=== PATIENT | female | born 2000 | race African-American/Black ===

== ENCOUNTER 2024-05-26 21:36 | Emergency (ER) | payer OTHER, MEDICAID ==
--- NOTE | 2024-05-26 22:16 | ED Physician Documentation ---
History of Present Illness - Stated complaint Stated Complaint: N/D/FEVER - Chief complaint Chief Complaint: Abd Pain - History obtained from History obtained from: Patient - History of Present Illness Timing: Today Pain level max: 0 Pain level now: 0 - Additonal information Additional information: Patient is a 23-year-old female, 2 para 1, approximately 7 weeks last week. [facility] went to [facility] for a elective . She received misoprostol on Wednesday, took the second dose on Wednesday. She states she has not had much bleeding and is concerned that it did not work. She states that she had a Tmax of 100.2 today. She states she has had diarrhea as well. Nothing makes it better or worse. No cough or congestion. No headache. Has had nausea. Review of Systems Constitutional: denies: Chills, Myalgias GI: denies: Abdominal Pain, Bloody / black stool : denies: Dysuria, Frequency, Hesitancy Skin: denies: Rash Musculoskeletal: denies: Neck pain, Back pain PD PAST MEDICAL HISTORY - Past Medical History Past Medical History: No - Past Surgical History Past Surgical History: No - Allergies Allergies/Adverse Reactions: Allergies Allergy/AdvReac Type Severity Reaction Status Date / Time No Known Drug Allergies Allergy Verified 05/26/24 21:49 - Social History Does the pt smoke?: No Smoking Status: Never smoker - POLST Patient has POLST: No PD ED PE NORMAL - Vitals Vital signs reviewed: Yes - General General: Alert and oriented X 3, No acute distress - HEENT HEENT: Moist mucous membranes - Neck Neck: Supple, no meningeal sign - Cardiac Cardiac: RRR, Strong equal pulses - Respiratory Respiratory: No respiratory distress, Clear bilaterally - Abdomen Abdomen: Soft, Non tender, Non distended - Derm Derm: Warm and dry - Extremities Extremities: No edema - Neuro Neuro: Alert and oriented X 3 - Psych Psych: Normal mood, Normal affect Results - Vitals Vitals: Vital Signs - 24 hr 05/26/24 21:49 Temperature 36.7 C Heart Rate 78 Respiratory 16 Rate Blood Pressure 117/78 O2 Saturation 100 Oxygen O2 Source Room air PD Medical Decision Making - ED course Complexity details: reviewed results, re-evaluated patient, considered differential, d/w patient, d/w new vehicle sales consultant ED course: Bedside ultrasound was performed. Shows a intrauterine , heart rate of approximately 157 bpm. Measuring 8 weeks 5 days. Discussed the case with Dr. Lindsey, OB on-call, recommends following up in the office to schedule a D&C. He does request a blood type and hCG level. These were ordered. Patient is otherwise well-appearing, nontoxic. No evidence of endometritis. No evidence of sepsis. Patient will follow-up with OB for further care. Patient counseled regarding signs and symptoms for which I believe and urgent re-evaluation would be necessary. Patient with good understanding of and agreement to plan and is comfortable going home at this time This document was made in part using voice recognition software. While efforts are made to proofread this document, sound alike and grammatical errors may occur. Departure - Departure Disposition: 01 Home, Self Care Clinical Impression: Qualifiers: Weeks of gestation: 8 weeks Qualified Code(s): Z3A.08 - 8 weeks gestation of Condition: Good Instructions: Misoprostol tablets, Dilation and Curettage, Dilation and Curettage Dc Follow-Up: Óscar Lindsey MD [Provider Admit Priv/Credential] - Comments: I spoke with Dr. Lindsey, on-call for OB tonight. He states that since you did take misoprostol, it is recommended that you complete the termination of with a dilatation and curettage. This is a procedure performed in the operating room. He is going to see you in the office next week to get that scheduled for you. The office should call you on Wednesday, if you do not hear from them by early afternoon, I would recommend calling them. Please return if you worsen including increasing pain, fevers or other new or worrisome symptoms. Forms: PCP List
[2024-05-26 22:20] VITALS: O2SAT 100
[2024-05-26 22:42] VITALS: BP 123/69
== END 2024-05-26 22:35 | disposition home or self-care (01) ==
LOC: ED 21:36
DX: O99.891 Other specified diseases and conditions complicating pregnancy (principal); R50.9 Fever, unspecified; R19.7 Diarrhea, unspecified; Z3A.08 8 weeks gestation of pregnancy
CPT/HCPCS: 36415; 84702; 86900; 86901; 99283

== ENCOUNTER 2025-01-08 21:04 | Inpatient (IN) ==
[2025-01-08] MEDS ORDERED: miSOPROStoL 200 MCG TABLET BC PRN (21:19)
[2025-01-08] MEDS ORDERED: lidocaine 1% 20 ML MDV ID PRN (21:19)
[2025-01-08] MEDS ORDERED: fentaNYL 100 MCG/2 ML VIAL IVP PRN (21:19)
[2025-01-08] MEDS ORDERED: NIFEdipine 10 MG CAPSULE PO PRN (21:19)
[2025-01-08] MEDS ORDERED: OXYTOCIN/SODIUM CHLORIDE 500 ML IV PRN (21:19)
[2025-01-08] MEDS ORDERED: hydrALAZINE INJ 20 MG/ML VIAL IVP PRN (21:19)
[2025-01-08] MEDS ORDERED: TERBUTALINE 1 MG/ML VIAL SUBQ PRN (21:19)
[2025-01-08] MEDS ORDERED: LABETALOL 20 MG/4 ML SYRINGE IVP PRN ×3 (21:19)
[2025-01-08] MEDS ORDERED: ACETAMINOPHEN 500 MG TABLET PO PRN (21:19)
[2025-01-08] MEDS ORDERED: miSOPROStoL 200 MCG TABLET PR PRN (21:19)
[2025-01-08] MEDS ORDERED: TRANEXAMIC ACID IN NACL 1,000 MG/100 ML BAG IV PRN (21:19)
[2025-01-08] MEDS ORDERED: METHYLERGONOVINE 0.2 MG/ML VIAL IM PRN (21:19)
[2025-01-08] MEDS ORDERED: SODIUM CHLORIDE FLUSH 0.9% 10 ML SYRINGE IVP PRN (21:19)
[2025-01-08] MEDS ORDERED: OXYTOCIN 10 UNIT/ML VIAL IM PRN (21:19)
[2025-01-08] MEDS ORDERED: SUMAtriptan 25 MG TABLET PO PRN (22:00)
[2025-01-08] MEDS: SODIUM CHLORIDE FLUSH 0.9% 10 ML SYRINGE IVP SCH (22:00)
[2025-01-08 22:02] LABS: BASOPHILS % (AUTO) 0.5 %; EOSINOPHILS # (AUTO) 0.1 10^3/uL (0.0-0.7); EOSINOPHILS % (AUTO) 1.1 %; HCT - HEMATOCRIT 33.8 % (37.0-47.0); HGB - HEMOGLOBIN 10.8 g/dL (12.0-16.0); LYMPHOCYTES # (AUTO) 1.4 10^3/uL (1.5-3.5); LYMPHOCYTES % (AUTO) 15.8 %; MEAN CORPUSCULAR HEMOGLOBIN 28.4 pg (27.0-31.0); MEAN CORPUSCULAR VOLUME 88.9 fL (81.0-99.0); MEAN PLATELET VOLUME 9.7 fL (7.9-10.8); MONOCYTES # (AUTO) 0.8 10^3/uL (0.0-1.0); MONOCYTES % (AUTO) 9.7 %; NEUTROPHILS # (AUTO) 6.1 10^3/uL (1.5-6.6); NEUTROPHILS % (AUTO) 71.7 %; PLT - PLATELET COUNT 239 10^3/uL (130-450); RED CELL DISTRIBUTION WIDTH 14.1 % (12.0-15.0); WHITE BLOOD COUNT 8.5 x10^3/uL (4.8-10.8)
[2025-01-08 22:15] LABS: ALBUMIN 3.6 g/dL (3.2-5.5); ALBUMIN/GLOBULIN RATIO 1.3 (1.0-2.2); BILIRUBIN,TOTAL 0.3 mg/dL (0.2-1.0); CALCIUM 9.5 mg/dL (8.5-10.3); CREATININE 0.7 mg/dL (0.6-1.3); TOTAL PROTEIN 6.4 g/dL (6.4-8.9)
--- NOTE | 2025-01-08 22:33 | HISTORY & PHYSICAL EXAMINATION ---
Admit History Visit Reason Visit Reason: Other (labor induction at term) : 2 Parity: 1 Care: positive [facility] Smoking Status: Never smoker Other Maternal History Other Maternal History: Admitted for labor induction. was to have last week but due to unit acuity not until today. 40w 5d by US. not = lmp. biggest issue with , took mifepristone and misoprostol early in to terminate and remained . Evaluated by [facility] MFM and found all was normal. otherwise pretty normal. does struggle with migraines and is taking nifedipine 30 mg xl daily since Aug and that helps. If she has a SANTOS does well with sumitriptan. nothing else really helps. does not get nauseated with her SANTOS. Home Medications - Last Reconciled 01/03/25 by Lawanda Washington MA acetaminophen (Tylenol) 325 mg PO Q6H PRN acetaminophen-caffeine 500-65 mg (Excedrin Tension Headache) 1 tab PO Q12H PRN mupirocin 2% (Centany) 1 applic topical TID nifedipine ER TAKE 1 TABLET BY MOUTH EVERY DAY prenat.vits,osvaldo,toj-jcjf-[id number] tabs PO sumatriptan succinate take 1 tab at onset of headache; if no relief may repeat 1 tab after at least 2 hrs; max = 4 tabs/24 hr PO triamcinolone acetonide 0.025% Apply to affected area once or twice daily for 2- 4 weeks. Expected Delivery Route/Plan Membrane sweep 12/28 IOL 12/31. Specific Issues/Plans Exposure to mifepristone and misoprostol: -Managed with MFM and discussed risks and benefits of continuation of after exposure. Discrepant dating: Unsure of her last LMP, and discordant from previous ultrasound. Will use 12-week dating scan. Migraine with aura: Headaches several days a week, although improving. Was prescribed a biologic, but did not start. Prescribed metoclopramide, but has not used. Tylenol is managing currently. Excessive weight gain in -EFW At 36 weeks: EFW 3119 g, 80th percentile. Abdominal circumference 91st percentile. Blood type: O+ Antibody: negative CBC: [id number] HCT39.5 HGB 13.0 RUB: equivocal VZV: immune HBsAg: negative HepC: NR RPR/AB-EIA: NR (reactive A) HIV: NR PAP: 2 years ago normal GC/CT: negative HSV: denies Genetic testing: negative Covid: declines [facility] done at [place] (in the scanned records) Placenta: anterior Cord:3VC NICOLLE:WNL EFW: 443g 65th%ile 50gm OGCT: 100 3HR GTT: TDAP: 10/20 Breast Pump: has one Antibody screen: 3rd trimester CPO644 HCT37.7 HGB 12.3 GBS:12/07/24 - negative HPI Diagnosis/Indication for NST: Other (induction) NST Procedure NST Procedure: Reactive for of 32 weeks gestation or more. NST tracing contains at least two heart rate accelerations that are at least 15 beats per minute above the baseline rate and lasting at least 15 seconds from onset to return to baseline within a twenty minute period. Results and Plan Findings/Impression: reactive NST Plan: proceed with labor induction Meds/Allgy Home Medications Ambulatory Orders Medication Instructions Recorded Confirmed mupirocin 2 % topical ointment 1 applic topical TID #15 grams 07/03/24 01/08/25 (Centany) prenat.vits,osvaldo,acw-yjje-zwumq tab PO 07/03/24 01/08/25 acetaminophen 325 mg capsule 325 mg PO Q6H PRN 07/14/24 01/08/25 (Tylenol) acetaminophen-caffeine 500 mg-65 1 tab PO Q12H PRN 07/14/24 01/08/25 mg tablet (Excedrin Tension Headache) sumatriptan succinate 50 mg tablet See Rx Instructions PO .COMPLEX 09/12/24 01/08/25 #20 tabs nifedipine 30 mg tablet,extended See Rx Instructions .Route 09/15/24 01/08/25 release .COMPLEX #90 tabs triamcinolone acetonide 0.025 % See Rx Instructions topical 10/20/24 01/08/25 topical cream .COMPLEX eczema #80 grams Allergies Allergies Allergy/AdvReac Type Severity Reaction Status Date / Time No Known Drug Allergies Allergy Verified 01/03/25 10:21 PFSH Active Problems All Active Problems (Updated 01/08/25 @ 22:32 by Argelia James MD) Encounter for planned induction of labor (Acute) Excessive weight gain affecting (Acute) Supervision of high risk in third trimester (Acute) Swelling of vagina (Acute) Migraine (Acute) 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, antepartum (Acute) Medical History Medical History (Updated 01/08/25 @ 22:32 by Argelia James MD) Fall Cellulitis of great toe, left Supervision of high risk in second trimester Social History Social History Smoking Status: Never smoker Do you vape?: Yes Do you feel safe in your home environment?: Yes Suffered physical, verbal, emotional, or financial abuse?: No History of Abuse: No ETOH Use: Wine Substance Use: denies use Are you sexually active?: Yes POLST Patient has POLST: No Review of Systems Cardiovascular Denies: Irregular heart rate, swelling of feet/ankles or shortness of breath with exertion Respiratory Denies: Shortness of breath Gastrointestinal Denies: Nausea Neurological Denies: Headache (no Headache today.) Physical Abdominal Exam Contraction Frequency (min/apart): EVERY 5-6 MIN Contraction Intensity: positive Mild Uterine Resting Tone: positive Soft Monitoring Heart Rate Baseline: 150 Strip Review: positive Category I Presentation Presentation: positive Vertex (confirmed by US tonight.) Vaginal Exam Membranes: positive Membranes intact Dilation (in cm): in clinic earlier today by Dr. Lindsey was 1 cm Station: positive -3 Speculum Exam Speculum Exam Performed: positive No Plan for Labor Plan For Labor I expect patient to be DC'd or transferred within 96 hours.: Yes Plan for Labor: misoprostol induction Conclusion/Plan Problem List (1) Encounter for planned induction of labor: Plan: 40w5d. start with miso. (2) Excessive weight gain affecting : Plan: will be mindful of increased risk of shoulder dystocia. (3) 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, antepartum: Plan: normal US with Prov MFM. Qualifiers: Fetus number: single or unspecified fetus Qualified Code(s): O35.9XX0 - Maternal care for (suspected) abnormality and damage, unspecified, not applicable or unspecified (4) Migraine: Plan: continue nifedipine daily. sumitriptan ordered in case she gets a headache. Plan labor induction with misoprostol. procedure reviewed. consents signed. Lab Results Lab results reviewed: Yes 01/08/25 21:45 01/08/25 21:45
[2025-01-08] MEDS: miSOPROStoL 100 MCG TABLET VG SCH (22:42)
[2025-01-08 23:29] LABS: CREATININE,URINE 173.3 mg/dL; PROTEIN/CREATININE RATIO,URINE 0.1 (<=0.2)
--- NOTE | 2025-01-09 07:35 | PROVIDER PROGRESS NOTE ---
Labor Progress Note Uterine Monitoring Uterine Monitoring Mode: positive External toco Contraction Intensity: positive Moderate Uterine Resting Tone: positive Soft Monitoring Monitor Mode: positive External ultrasound Heart Rate Variability: positive Moderate (6-25 bmp) Accelerations: positive Present, 15x15 Decelerations: positive None Strip Review: positive Category I Vaginal Exam Dilation (in cm): 4.5 Effacement (%): 90 Station: -2 Cervical Position: Posterior Labor Progress Note Labor Progress Note/Additional Text: Painful contractions since SROM at 0145. check at 0300 and 1 cm -3. now very painful, just out of tub and going back on monitor. Seems to be progressing to active phase with just one dose of miso. Great for her as she wanted an unmedicated . Mom, daughter, and Jr in room for support. Meconium in amniotic fluid so will notify peds for delivery.
[2025-01-09] MEDS ORDERED: NIFEdipine ER 30 MG TABLET PO SCH (09:00)
[2025-01-09] MEDS: LACTATED RINGERS 1,000 ML IV PRN (09:12)
[2025-01-09] MEDS ORDERED: ROPIVACAINE 0.2% 200 MG/100 ML BAG EP ONE (09:18)
[2025-01-09] MEDS ORDERED: NALBUPHINE 10 MG/ML AMP IVP PRN (09:49)
[2025-01-09] MEDS ORDERED: NALOXONE 0.4 MG/ML VIAL IVP PRN ×2 (09:49→23:15)
[2025-01-09] MEDS ORDERED: diphenhydrAMINE INJ 50 MG/ML VIAL IVP PRN (09:49)
[2025-01-09] MEDS ORDERED: METOCLOPRAMIDE 10 MG/2 ML VIAL IVP PRN ×2 (09:49→23:15)
--- NOTE | 2025-01-09 09:58 | ANESTHESIA PROCEDURE NOTE ---
Pre-Anesthesia VS, & Labs Diagnosis Surgical Diagnosis:: term labor pain Procedure Procedure: epidural for NPO Last Fluid Intake: t/o morning Last Food Intake: breakfast Is Patient ?: Yes Lab Results Current Lab Results: Laboratory Tests 01/08/25 21:45: WBC 8.5, RBC 3.80 L, Hgb 10.8 L, Hct 33.8 L, MCV 88.9, MCH 28.4, MCHC 32.0, RDW 14.1, Plt Count 239, MPV 9.7, Neut # (Auto) 6.1, Lymph # (Auto) 1.4 L, Peach # (Auto) 0.8, Eos # (Auto) 0.1, Baso # (Auto) 0.0, Absolute Nucleated RBC 0.00, Nucleated RBC % 0.0, Sodium 135, Potassium 4.0, Chloride 104, Carbon Dioxide 24, Anion Gap 7.0, BUN 12, Creatinine 0.7, Estimated GFR (MDRD) 125, Glucose 76, Calcium 9.5, Total Bilirubin 0.3, AST 13, ALT 9 L, Alkaline Phosphatase 94, Total Protein 6.4, Albumin 3.6, Globulin 2.8, Albumin/Globulin Ratio 1.3, Blood Type O POSITIVE, Antibody Screen NEGATIVE 01/08/25 21:45 01/08/25 21:45 Meds/Allgy Home Medications Ambulatory Orders Medication Instructions Recorded Confirmed prenat.vits,osvaldo,lma-uhqr-gghsx 1 tab PO 07/03/24 01/08/25 acetaminophen-caffeine 500 mg-65 1 tab PO Q12H PRN pain 07/14/24 01/09/25 mg tablet (Excedrin Tension Headache) sumatriptan succinate 50 mg tablet See Rx Instructions PO .COMPLEX 09/12/24 01/09/25 #20 tabs nifedipine 30 mg tablet,extended See Rx Instructions .Route 09/15/24 01/09/25 release .COMPLEX #90 tabs triamcinolone acetonide 0.025 % See Rx Instructions topical 10/20/24 01/09/25 topical cream .COMPLEX eczema #80 grams Allergies Allergies Allergy/AdvReac Type Severity Reaction Status Date / Time No Known Drug Allergies Allergy Verified 01/03/25 10:21 PFSH Active Problems All Active Problems (Updated 01/09/25 @ 07:39 by Argelia Jamse MD) Post-term , 40-42 weeks of gestation (Acute) Meconium in amniotic fluid (Acute) Encounter for planned induction of labor (Acute) Excessive weight gain affecting (Acute) Supervision of high risk in third trimester (Acute) Migraine (Acute) 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, antepartum (Acute) Medical History Medical History (Updated 01/09/25 @ 07:39 by Argelia James MD) Fall Cellulitis of great toe, left Supervision of high risk in second trimester Surgical History Surgical History (Updated 01/09/25 @ 09:55 by Marcio Monk CRNA) S/P wisdom tooth extraction Social History Social History Smoking Status: Never smoker Do you dip or chew tobacco?: No Do you vape?: Yes Patient requests smoking cessation consult: No Initiate information on smoking cessation: No Do you feel safe in your home environment?: Yes Suffered physical, verbal, emotional, or financial abuse?: No History of Abuse: No ETOH Use: Wine Substance Use: denies use Are you sexually active?: Yes POLST Patient has POLST: No Anesthesia Exam (Expanded) Exam General: Alert, Oriented x3 and Cooperative Dental: WNL Mouth Openin Fingerbreadth Neck Mobility: Normal Mallampati classification: II Thyromental Distance: 4-6 cm Respiratory: No respiratory distress Cardiovascular: Regular rate Neurological: Normal speech Mental/Cognitive Status: Alert/Oriented X3 and Normal for patient Cognitive Status: Within normal limits Plan Problem List (1) Encounter for planned induction of labor: Plan: 40w5d. start with miso. (2) Excessive weight gain affecting : Plan: will be mindful of increased risk of shoulder dystocia. (3) 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, antepartum: Plan: normal US with Prov MFM. Qualifiers: Fetus number: single or unspecified fetus Qualified Code(s): O35.9XX0 - Maternal care for (suspected) abnormality and damage, unspecified, not applicable or unspecified (4) Migraine: Plan: continue nifedipine daily. sumitriptan ordered in case she gets a headache. Plan labor induction with misoprostol. procedure reviewed. consents signed. Plan Anesthesia Type: Epidural Consent for Procedure(s) Verified and Reviewed: Yes Code Status: Attempt Resuscitation ASA Classification ASA classification: 2-Mild systemic disease Is this case an emergency?: No
[2025-01-09] MEDS ORDERED: ePHEDrine 50 MG/ML VIAL IVP ONE ×2 (09:59→22:16)
[2025-01-09] MEDS: ePHEDrine 50 MG/ML VIAL IVP PRN (10:10)
[2025-01-09] MEDS: LACTATED RINGERS 500 ML IV ONE (10:10)
[2025-01-09] MEDS: ONDANSETRON 4 MG/2 ML VIAL IVP PRN (10:15)
--- NOTE | 2025-01-09 12:17 | PHARMACY PROGRESS NOTE ---
Best Possible Medication History Admit Date and Time: 01/08/259 Home Medications Medication Instructions Recorded Confirmed Type acetaminophen-caffeine 500 mg-65 1 tab PO Q12H PRN pain 07/14/24 01/09/25 History mg tablet (Excedrin Tension Headache) sumatriptan succinate 50 mg tablet See Rx Instructions PO .COMPLEX 09/12/24 01/09/25 Rx #20 tabs nifedipine 30 mg tablet,extended See Rx Instructions .Route 09/15/24 01/09/25 Rx release .COMPLEX #90 tabs triamcinolone acetonide 0.025 % See Rx Instructions topical 10/20/24 01/09/25 Rx topical cream .COMPLEX eczema #80 grams vitamin no.167-folic acid 1 tab PO DAILYWM 01/09/25 01/09/25 History 400 mcg-dha 25 mg chewable tablet (One-A-Day ) Processed by: Pharmacy Medications reviewed in ED?: No Medication History completed: No Patient Interview: Completed Secondary Source(s): Insurance records [facility] Statement: Per [facility] interview with patient and review of [employer] insurance records. As the person ultimately responsible for medication therapy, providers are able to order a medication from an existing home medication list in [facility] via the "Reconcile Routine" prior to Confirmation of that medication by client support manager. Such practice is discouraged except when the physician, in their clinical judgment, deems that a medical need exists for a medication without regard to previous use.
[2025-01-09] MEDS: OXYTOCIN/SODIUM CHLORIDE 500 ML IV SCH (12:21)
--- NOTE | 2025-01-09 13:33 | MISCELLANEOUS PROVIDER NOTE ---
Miscellaneous Provider Note - Note: Patient with repeated low BPs for last 2 hours, ephedrine used, called to assess patient. Pt comfortable with contractions resting on R side. Epidural rate changed from 10cc/hr continuous to 7cc/hr continuous. 4cc PCEA bolus [id number] remains available as needed.
--- NOTE | 2025-01-09 15:52 | PROVIDER PROGRESS NOTE ---
Labor Progress Note Labor Progress Note Labor Progress Note/Additional Text: S: Overall comfortable, epidural working well. Has needed multiple doses of ephedrine since epidural due to hypotension. [facility]: [facility] 590[facility]3, moderate consistency, cervix a little thicker on her right side. Discussed placement of IUPC and she did consent, placed without difficulty. monitoring: FHTs: 150s bpm baseline, + accel, intermittent late decelerations, mostly moderate variability, minimal at times. [place]: 2-6 min Cat 2 A/P: 24 yo at 40w6d undergoing elective IOL. FHTs have been Cat 2 this afternoon with intermittent late decelerations, possibly due to hypotension after epidural. Has required multiple ephedrine doses and IV fluid boluses. RN giving another dose of epherine now, CAR HOPPER will assess at bedside. IUPC placed, will continue pitocin titration to adequate MVUs if FHTs will allow. Will continue to monitor closely. Deonte Taylor MD
--- NOTE | 2025-01-09 15:52 | MISCELLANEOUS PROVIDER NOTE ---
Miscellaneous Provider Note - Note: Called for low BPs, mom, baby stable. 90s for last hour despite fluid bolus, ephedrine. Patient comfortable with contractions, rating them a 1/10. Pitocin at 6. Sensory level asssesed at T6, able to move BLE. Epidural rate decreased to 5cc/hr with no change to PCEA.
[2025-01-09] MEDS: ROPIVACAINE 0.2% 200 MG/100 ML BAG EP PRN (16:43)
[2025-01-09] MEDS ORDERED: fentaNYL 100 MCG/2 ML VIAL ONE ×2 (17:13→23:32)
[2025-01-09] MEDS ORDERED: ROPIVACAINE 0.2% PF 20ML VIAL ONE (17:14)
--- NOTE | 2025-01-09 17:45 | MISCELLANEOUS PROVIDER NOTE ---
Miscellaneous Provider Note - Note: Called for patient having contraction pain now, after epidural dose reduced t wice. BP now stable in 110's. Sensory level T12. 8cc bolus of 0.2% Ropi with 2cc of Fentanyl. Epidural rate back to 10cc/hr continuous. Pt states pain down to 2/10 from 8/10 10mins earlier.
--- NOTE | 2025-01-09 21:12 | PROVIDER PROGRESS NOTE ---
Labor Progress Note Labor Progress Note Labor Progress Note/Additional Text: Wilbert was evaluated at bedside at 1745 and again at 2004. At 1745, SVE 6/80- 2. SVE was unchanged on repeat exam at 2004. She remains on pitocin, contractions adequate earlier in the evening but now inadequate. FHTs have been Cat 2 with tachycardia and intermittent late decelerations, occasional mild variable decelerations. She is afebrile. We discussed continuing with pitocin augmentation and repeating exam at 2145. We have discussed possible delivery if decelerations repetitive and not improved with rescuscitative measures or if SVE unchanged with next check. Will continue to increase pitocin to achieve adequate MVUs if FHTs will allow. Deonte Taylor MD
[2025-01-09] MEDS ORDERED: ceFAZolin (2G) 2 GM in SODIUM CHLORIDE 0.9% MINIBAG 100 ML IV ONE (22:04)
[2025-01-09] MEDS ORDERED: CITRIC ACID/SODIUM CITRATE 15 ML UDC PO ONE (22:04)
[2025-01-09] MEDS ORDERED: AZITHROMYCIN INJ 500 MG in SODIUM CHLORIDE 0.9% 250 ML IV ONE (22:05)
--- NOTE | 2025-01-09 22:09 | PROVIDER PROGRESS NOTE ---
Labor Progress Note Labor Progress Note Labor Progress Note/Additional Text: Wilbert seen at bedside, SVE unchanged and cervix now more swollen. Recommended that we proceed with primary delivery for arrest of active phase, in the setting of persistent Cat 2 FHTs. We reviewed risks of delivery including pain, bleeding (possibly requiring blood transfusion or as a life- saving measure hysterectomy), infection, damage to nearby structures including bowel/bladder, longer recovery time , increased risk for DVT, risk of /injury to mom or baby. She does agree to proceed. Consent was signed. Deonte Taylor MD
[2025-01-09] MEDS ORDERED: OXYTOCIN 10 UNIT/ML VIAL ONE ×2 (22:14→23:41)
[2025-01-09] MEDS ORDERED: LIDOCAINE 2%-EPI 1:100000 20 ML MDV ONE (22:15)
[2025-01-09] MEDS ORDERED: SODIUM CHLORIDE 0.9% 10 ML VIAL ONE ×2 (22:16→23:48)
[2025-01-09] MEDS ORDERED: ONDANSETRON 4 MG/2 ML VIAL ONE (22:46)
[2025-01-09] MEDS ORDERED: METHYLERGONOVINE 0.2 MG/ML VIAL ONE (22:55)
[2025-01-09] MEDS ORDERED: TRANEXAMIC ACID IN NACL 1,000 MG/100 ML BAG IV ONE (22:55)
[2025-01-09] MEDS ORDERED: PHENYLEPHRINE HCL 0.5 MG/5 ML AMPULE ONE (23:11)
[2025-01-09] MEDS ORDERED: HYDROmorphone 0.5 MG/0.5 ML SYRINGE IVP PRN (23:15)
[2025-01-09] MEDS ORDERED: fentaNYL 100 MCG/2 ML VIAL IVP PRN (23:15)
[2025-01-09] MEDS ORDERED: ePHEDrine 50 MG/ML VIAL IVP PRN (23:15)
[2025-01-09] MEDS ORDERED: ATROPINE ABBOJECT 1 MG/10 ML SYRINGE IVP PRN (23:15)
[2025-01-09] MEDS ORDERED: MORPHINE 2 MG/ML CARPUJECT IVP PRN (23:15)
[2025-01-09] MEDS ORDERED: ONDANSETRON 4 MG/2 ML VIAL IVP PRN (23:15)
[2025-01-09] MEDS ORDERED: LIDOCAINE-PF 2% 10 ML AMP SUBQ ONE (23:33)
[2025-01-09] MEDS ORDERED: KETOROLAC 30 MG/ML VIAL ONE (23:37)
[2025-01-09] MEDS ORDERED: LACTATED RINGERS 1,000 ML IV SCH (23:45)
[2025-01-09] MEDS ORDERED: ROPIVACAINE 0.5% PF 20 ML VIAL ONE (23:47)
[2025-01-10] MEDS ORDERED: hydrALAZINE INJ 20 MG/ML VIAL IVP PRN ×2 (00:18)
[2025-01-10] MEDS ORDERED: OXYTOCIN/SODIUM CHLORIDE 500 ML IV PRN (00:18)
[2025-01-10] MEDS ORDERED: NIFEdipine 10 MG CAPSULE PO PRN (00:18)
[2025-01-10] MEDS ORDERED: HYDROCORTISONE 1% CREAM 28 GM TUBE TOP PRN (00:18)
[2025-01-10] MEDS ORDERED: MAGNESIUM HYDROXIDE 2,400 MG/30 ML UDC PO PRN (00:18)
[2025-01-10] MEDS ORDERED: NALOXONE 0.4 MG/ML VIAL IVP PRN (00:18)
[2025-01-10] MEDS ORDERED: LABETALOL 20 MG/4 ML SYRINGE IVP PRN ×3 (00:18)
--- NOTE | 2025-01-10 00:28 | MISCELLANEOUS PROVIDER NOTE ---
Miscellaneous Provider Note - Note: Called for C/S due to failure to progress. Discussed Epidural vs spinal vs GETA. Agreed to B TAP blocks after closure regardless of the anesthetic.
--- NOTE | 2025-01-10 00:30 | ANESTHESIA POST OP EVALUATION ---
Anesthesia Post Eval Post Anesthesia Eval Vitals: Last Vital Signs Temp 37.3 C 01/10/25 00:16 Pulse 89 01/10/25 00:16 Resp 22 01/10/25 00:16 BP 124/62 01/10/25 00:16 Pulse Ox 99 01/10/25 00:16 CV Function Including HR & BP: Stable Pain Control: Satisfactory Nausea & Vomiting: Negative Mental Status: Baseline Respiratory Status: Airway Patent Hydration Status: Satisfactory Anesthesia Complications: None
--- NOTE | 2025-01-10 00:35 | OPERATIVE REPORT ---
Operative Report General Admit Date: 01/08/25 Procedure Data: Operation Date: 01/09/25 22:00 Proposed Procedures p Section(Not Applicable) - Deonte Taylor MD Actual Procedures p Section(Not Applicable) - Deonte Taylor MD Anesthesia Type Spinal Case Staff Anesthesia Provider: Marcio Monk Assisting Provider: Annabelle Velasquez Case Times Procedure Start: 01/09/25 22:47 Procedure End: 01/10/25 00:00 Time out: 01/09/25 22:44 Other Other Information/Narrative: DATE OF PROCEDURE: 01/09/25 Surgeon: Deonte Taylor MD Signal Operator: MARGARITO Hugo was necessary as an pastrycook's assistant for the entire procedure for adequate retraction and visualization, to shorten operative time, to assist with delivery of the , and to lower the risk of surgical injury Pre-Op Diagnosis: arrest of active phase Post-Op Diagnosis: same, PPH Procedures: primary low transverse delivery Findings: in direct OP position. Meconium stained amniotic fluid. Very boggy lower uterine segment and left extension of the hysterotomy with very brisk bleeding. Otherwise normal appearing uterus/tubes/ovaries. Specimens: none Anesthesia Technique: epidural Estimated Blood Loss: 1400cc Blood Replacement: none Fluid Replacement: 1500cc Drains: lucas, drained 450cc dark yellow urine Complications: PPH due to lower uterine segment atony and left extension of hysterotomy Condition: stable Procedure in Detail: The patient was taken to the operating room where epidural anesthesia was found to be adequate. Lucas was already in place. She was prepared and draped in the normal sterile fashion in the dorsal supine position with a leftward tilt. 2g Ancef and 500mg azithromycin were given for prophylaxis. A pfannenstiel skin incision was made with the scalpel and carried down through the subcutaneous tissue in the midline. The remainder of the subcutaneous tissue was then bluntly. The fascia was incised in the midline and the incision was extended bluntly. Finger dissection was used to separate the rectus muscles in the midline and the peritoneum was entered and the layers extended bluntly. The peritoneal incision was further extended with the bovie. The bladder blade was then inserted. The lower uterine segment was incised in a transverse fashion with the scalpel. The uterine incision was extended bluntly.The bladder blade was removed and the infants head was brought to the hysterotomy. Fundal pressure applied and the infant delivered atraumatically. The cord was clamped and cut after 30 sec due to very brisk bleeding and the infant was handed off to the waiting provider. The placenta was removed with gentle uterine massage and cord traction. The uterus was exteriorized and cleared of all clots and debris with moist laparotomy sponges. The lower uterine segment was very boggy and briskly bleeding. IV TXA followed by IM methergine were given during repair of the hysterotomy. The uterine incision was repaired with 0 Vicryl in a running fashion. A second layer of 0 monocryl was used in an imbricating fashion. The hysterotomy appeared hemostatic. The posterior cul-de-sac was cleared of all clots and debris with laparotomy sponges, and the uterus was returned to the ab domen. The gutters were cleared of all clots. The hysterotomy was inspected again and the the left angle noted to be bleeding. Additional figure of eight stitches of 0 monocryl were required here for hemostasis. Oozing below the hysterotomy and above the bladder was cauterized with the bovie and then additional figure of eight stitches placed of 3-0 monocryl and then 3-0 chromic. Surgicel powder was placed over the hysterotomy. The rectus muscles were carefully examined and the bovie was used to achieve hemostasis. The fascia was reapproximated with O Vicryl in a running fashion. The subcutaneous tissues was irrigated. The subcutaneous tissue was reapproximated with 2-0 Vicryl in two layers, and the skin was closed with 4-0 monocryl. Steristrips followed by a sterile dressing were placed. The patient tolerated the procedure well. Sponge, lap, needle, and instrument counts were correct at the end of the procedure. The patient was taken to the recovery room in stable condition. Deonte Taylor MD
[2025-01-10] MEDS: KETOROLAC 30 MG/ML VIAL IVP SCH (05:34)
[2025-01-10 09:33] LABS: HGB - HEMOGLOBIN 8.8 g/dL (12.0-16.0); MEAN CORPUSCULAR HEMOGLOBIN 28.8 pg (27.0-31.0); MEAN CORPUSCULAR HGB CONC 31.4 g/dL (32.0-36.0); MEAN CORPUSCULAR VOLUME 91.5 fL (81.0-99.0); MEAN PLATELET VOLUME 9.5 fL (7.9-10.8); RED BLOOD COUNT 3.06 10^6/uL (4.20-5.40); RED CELL DISTRIBUTION WIDTH 14.6 % (12.0-15.0); WHITE BLOOD COUNT 14.7 x10^3/uL (4.8-10.8)
[2025-01-10] MEDS: SIMETHICONE CHEW 80 MG TABLET PO PRN (10:25)
[2025-01-10] MEDS: oxyCODONE 5 MG TABLET PO PRN (10:25)
[2025-01-10] MEDS: ACETAMINOPHEN 500 MG TABLET PO ONE (10:26)
[2025-01-10] MEDS: DOCUSATE SODIUM 100 MG CAPSULE PO SCH (10:26)
--- NOTE | 2025-01-10 12:46 | PROVIDER PROGRESS NOTE ---
Subjective Subjective Subjective: Subjective Patient reports she is doing well. Lochia appropriate. Denies heavy bleeding. Ambulating. Pelvic and abdominal pain well-controlled. Tolerating oral intake. Diet: Regular. Voiding without difficulty. Passing flatus. Denies BM. Patient is bonding with baby in room Breast feeding going well. Denies feeling lightheaded, dizzy or excessively fatigued. Objective General: Alert, oriented, no apparent distress. Cardiovascular: Regular rate. Regular rhythm. Lungs: No increased work of breathing. Abdomen: Uterus firm. Below umbilicus. No guarding or rebound. Extremities: No pain on palpation. No cords palpated. Distal pulses intact. Incision: Bandage in place. Current Medications Current Medications Current Medications: Current Medications Generic Name Dose Route Start Last Admin Trade Name Freq PRN Reason Stop Dose Admin Acetaminophen 1,000 mg 01/08/25 21:19 Acetaminophen 500 Mg Tablet PO Q8H PRN Mild Pain or Fever>38C(100.4F) Acetaminophen 1,000 mg 01/10/25 06:00 Acetaminophen 500 Mg Tablet PO Q8H EDILIA Diphenhydramine HCl 12.5 - 25 mg 01/09/25 09:49 Diphenhydramine Inj 50 Mg/Ml Vial IVP Q6HR PRN ITCHING Docusate Sodium 200 mg 01/10/25 09:00 01/10/25 10:26 Docusate Sodium 100 Mg Capsule PO 200 mg BID EDILIA Administration Ephedrine Sulfate 5 mg 01/09/25 09:49 01/09/25 15:28 Ephedrine 50 Mg/Ml Vial IVP 5 mg Q5M PRN Administration For SBP<100;give until SBP>100 Fentanyl 50 mcg 01/08/25 21:19 Fentanyl 100 Mcg/2 Ml Vial IVP Q1H PRN Severe Pain (score 7-10) Hydralazine HCl 5 - 10 mg 01/08/25 21:19 Hydralazine Inj 20 Mg/Ml Vial IVP Q20M PRN SBP> or= 160 OR DBP> or= 110 Protocol Hydralazine HCl 10 mg 01/10/25 00:18 Hydralazine Inj 20 Mg/Ml Vial IVP .ONCE PRN SBP> or= 160 OR DBP> or= 110 Protocol Hydralazine HCl 5 - 20 mg 01/10/25 00:18 Hydralazine Inj 20 Mg/Ml Vial IVP Q20M PRN SBP> or= 160 OR DBP> or= 110 Protocol Hydrocortisone 1 applic 01/10/25 00:18 Hydrocortisone 1% Cream 28 Gm Tube TOP QID PRN Hemorrhoids Lactated Ringer's 500 mls @ 999 mls/hr 01/08/25 21:19 01/09/25 09:12 Lr IV 999 mls/hr PRN PRN Administration Hypotension Oxytocin/Sodium Chloride 500 mls @ 999 mls/hr 01/08/25 21:19 Pitocin/Sodium Chloride IV PRN PRN POST- HEMORR PREVENTION Protocol 999 MILLIUNIT/MIN Tranexamic Acid 1,000 mg in 100 mls @ 600 mls/hr 01/08/25 21:19 Tranexamic 1,000 Mg/100ml-Nacl IV Q30M PRN EBL >1200mL and within 3hr Ropivacaine 200 mg in 100 mls @ 0 mls/hr 01/09/25 09:49 01/09/25 16:43 Naropin 0.2% EP 5 mls/hr PRN PRN Administration PAIN Protocol Per Protocol Oxytocin/Sodium Chloride 500 mls @ 1 mls/hr 01/09/25 12:00 01/09/25 21:57 Pitocin/Sodium Chloride IV 0 milliunit/min TITR EDILIA 0 mls/hr Titration Protocol 1 MILLIUNIT/MIN Oxytocin/Sodium Chloride 500 mls @ 999 mls/hr 01/10/25 00:18 Pitocin/Sodium Chloride IV PRN PRN POST- HEMORR PREVENTION Protocol 999 MILLIUNIT/MIN Ibuprofen 600 mg 01/11/25 01:00 Ibuprofen 600 Mg Tablet PO Q6HR EDILIA Ketorolac Tromethamine 15 mg 01/10/25 06:00 01/10/25 11:41 Ketorolac 30 Mg/Ml Vial IVP 01/10/25 18:01 15 mg Q6HR EDILIA Administration Labetalol HCl 20 - 80 mg 01/08/25 21:19 Labetalol 20 Mg/4 Ml Syringe IVP Q10M PRN SBP> or= 160 OR DBP> or= 110 Protocol Labetalol HCl 20 mg 01/08/25 21:19 Labetalol 20 Mg/4 Ml Syringe IVP .ONCE PRN SBP> or= 160 OR DBP> or= 110 Protocol Labetalol HCl 20 - 40 mg 01/08/25 21:19 Labetalol 20 Mg/4 Ml Syringe IVP Q10M PRN SBP> or= 160 OR DBP> or= 110 Protocol Labetalol HCl 20 - 40 mg 01/10/25 00:18 Labetalol 20 Mg/4 Ml Syringe IVP Q10M PRN SBP> or= 160 OR DBP> or= 110 Protocol Labetalol HCl 20 mg 01/10/25 00:18 Labetalol 20 Mg/4 Ml Syringe IVP .ONCE PRN SBP> or= 160 OR DBP> or= 110 Protocol Labetalol HCl 20 - 80 mg 01/10/25 00:18 Labetalol 20 Mg/4 Ml Syringe IVP Q10M PRN SBP> or= 160 OR DBP> or= 110 Protocol Lidocaine HCl 20 ml 01/08/25 21:19 Lidocaine 1% 20 Ml Mdv ID 01/11/25 21:19 .ONCE PRN PERINEAL REPAIR Magnesium Hydroxide 2,400 mg 01/10/25 00:18 Magnesium Hydroxide 2,400 Mg/30 Ml Udc PO Q8HR PRN Constipation Methylergonovine Maleate 0.2 mg 01/08/25 21:19 Methylergonovine 0.2 Mg/Ml Vial IM .ONCE PRN Hemorrhage Metoclopramide HCl 10 mg 01/09/25 09:49 Metoclopramide 10 Mg/2 Ml Vial IVP Q6HR PRN Nausea / Vomiting Misoprostol 600 mcg 01/08/25 21:19 Misoprostol 200 Mcg Tablet BC .ONCE PRN Hemorrhage Misoprostol 800 mcg 01/08/25 21:19 Misoprostol 200 Mcg Tablet [place] .ONCE PRN Hemorrhage Misoprostol 25 mcg 01/08/25 23:00 01/08/25 22:42 Misoprostol 100 Mcg Tablet VG 25 mcg Q4H EDILIA Administration Nalbuphine HCl 2.5 - 5 mg 01/09/25 09:49 Nalbuphine 10 Mg/Ml Amp IVP Q4H PRN ITCHING Naloxone HCl 0.1 mg 01/09/25 09:49 Naloxone 0.4 Mg/Ml Vial IVP Q2M PRN RR<8 Naloxone HCl 0.4 mg 01/10/25 00:18 Naloxone 0.4 Mg/Ml Vial IVP .ONCE PRN Opioid overdose Nifedipine 10 - 20 mg 01/08/25 21:19 Nifedipine 10 Mg Capsule PO Q20M PRN SBP> or= 160 OR DBP> or= 110 Protocol Nifedipine 30 mg 01/09/25 09:00 Nifedipine Er 30 Mg Tablet PO DAILY [facility] Nifedipine 10 - 20 mg 01/10/25 00:18 Nifedipine 10 Mg Capsule PO Q20M PRN SBP> or= 160 OR DBP> or= 110 Protocol Ondansetron HCl 4 mg 01/09/25 09:49 01/09/25 10:15 Ondansetron 4 Mg/2 Ml Vial IVP 4 mg Q6HR PRN Administration Nausea / Vomiting Oxycodone HCl 5 mg 01/10/25 00:18 01/10/25 10:25 Oxycodone 5 Mg Tablet PO 5 mg Q4HR PRN Administration Severe Pain 6 -10 Oxytocin 10 unit 01/08/25 21:19 Oxytocin 10 Unit/Ml Vial IM .ONCE PRN Step One if no IV access. Simethicone 80 mg 01/10/25 00:18 01/10/25 10:25 Simethicone Chew 80 Mg Tablet PO 80 mg TID PRN Administration Gas Sodium Chloride 10 ml 01/08/25 21:19 Sodium Chloride Flush 0.9% 10 Ml Syringe IVP PRN PRN NEEDED PER PROVIDER ORDERS Sodium Chloride 10 ml 01/08/25 22:00 01/08/25 22:00 Sodium Chloride Flush 0.9% 10 Ml Syringe IVP Not Given Q8H [facility] Sumatriptan Succinate 25 mg 01/08/25 22:00 Sumatriptan 25 Mg Tablet PO DAILY PRN MIGRAINE Terbutaline Sulfate 0.25 mg 01/08/25 21:19 Terbutaline 1 Mg/Ml Vial SUBQ .ONCE PRN Tachystole Objective Vital Signs/Intake & Output Vital Signs: Vital Signs x48h Temp Pulse Resp BP Pulse Ox 01/10/25 08:47 36.8 C 101 H 15 106/57 L 99 01/10/25 05:16 16 118/71 98 Intake & Output: Intake & Output 01/07/25 01/08/25 01/09/25 01/10/25 23:59 23:59 23:59 23:59 Intake Total 71 / 71 1500 / 1500 Output Total 875 / 875 2450 / 2450 Balance -804 / -804 -950 / -950 Weight (kg) 230 lb Lab Results 01/10/25 09:18 01/08/25 21:45 Other Labs: Lab Results x24hrs 01/10/25 Range/Units 09:18 WBC 14.7 H (4.8-10.8) x10^3/uL RBC 3.06 L (4.20-5.40) 10^6/uL Hgb 8.8 L (12.0-16.0) g/dL Hct 28.0 L (37.0-47.0) % MCV 91.5 (81.0-99.0) fL MCH 28.8 (27.0-31.0) pg MCHC 31.4 L (32.0-36.0) g/dL RDW 14.6 (12.0-15.0) % Plt Count 185 (130-450) 10^3/uL MPV 9.5 (7.9-10.8) fL Assessment/Plan Problem List (1) Delivery by section: Impression: Routine postoperative care. Plan discharge in 1 to 2 days. (2) Delivery outcome of [place] : Impression: Routine care. Discussed pain at expectations. Encouraged up and ambulation. Qualifiers: outcome: live Qualified Code(s): Z37.0 - Single live
[2025-01-10] MEDS: ACETAMINOPHEN 500 MG TABLET PO SCH (20:19)
[2025-01-11] MEDS: IBUPROFEN 600 MG TABLET PO SCH (02:32)
--- NOTE | 2025-01-11 06:57 | PROVIDER PROGRESS NOTE ---
Subjective Subjective Subjective: Doing very well this morning. No acute complaints. Will try to take shower later. Waiting for laboratory results, will likely get iron transfusion later Subjective Patient reports she is doing well. Lochia appropriate. Denies heavy bleeding. Ambulating. Pelvic and abdominal pain well-controlled. Tolerating oral intake. Diet: Regular. Voiding without difficulty. Passing flatus. Denies BM. Patient is bonding with baby in room Breast feeding going well. Denies feeling lightheaded, dizzy or excessively fatigued. Objective General: Alert, oriented, no apparent distress. Cardiovascular: Regular rate. Regular rhythm. Lungs: No increased work of breathing. Abdomen: Uterus firm. Below umbilicus. No guarding or rebound. Extremities: No pain on palpation. No cords palpated. Distal pulses intact. Incision: Clean, dry, and intact. Current Medications Current Medications Current Medications: Current Medications Generic Name Dose Route Start Last Admin Trade Name Freq PRN Reason Stop Dose Admin Acetaminophen 1,000 mg 01/08/25 21:19 Acetaminophen 500 Mg Tablet PO Q8H PRN Mild Pain or Fever>38C(100.4F) Acetaminophen 1,000 mg 01/10/25 06:00 01/11/25 06:41 Acetaminophen 500 Mg Tablet PO 1,000 mg Q8H EDILIA Administration Diphenhydramine HCl 12.5 - 25 mg 01/09/25 09:49 Diphenhydramine Inj 50 Mg/Ml Vial IVP Q6HR PRN ITCHING Docusate Sodium 200 mg 01/10/25 09:00 01/10/25 10:26 Docusate Sodium 100 Mg Capsule PO 200 mg BID EDILIA Administration Ephedrine Sulfate 5 mg 01/09/25 09:49 01/09/25 15:28 Ephedrine 50 Mg/Ml Vial IVP 5 mg Q5M PRN Administration For SBP<100;give until SBP>100 Fentanyl 50 mcg 01/08/25 21:19 Fentanyl 100 Mcg/2 Ml Vial IVP Q1H PRN Severe Pain (score 7-10) Hydralazine HCl 5 - 10 mg 01/08/25 21:19 Hydralazine Inj 20 Mg/Ml Vial IVP Q20M PRN SBP> or= 160 OR DBP> or= 110 Protocol Hydralazine HCl 10 mg 01/10/25 00:18 Hydralazine Inj 20 Mg/Ml Vial IVP .ONCE PRN SBP> or= 160 OR DBP> or= 110 Protocol Hydralazine HCl 5 - 20 mg 01/10/25 00:18 Hydralazine Inj 20 Mg/Ml Vial IVP Q20M PRN SBP> or= 160 OR DBP> or= 110 Protocol Hydrocortisone 1 applic 01/10/25 00:18 Hydrocortisone 1% Cream 28 Gm Tube TOP QID PRN Hemorrhoids Lactated Ringer's 500 mls @ 999 mls/hr 01/08/25 21:19 01/10/25 20:33 Lr IV 999 mls/hr PRN PRN Administration Hypotension Oxytocin/Sodium Chloride 500 mls @ 999 mls/hr 01/08/25 21:19 Pitocin/Sodium Chloride IV PRN PRN POST- HEMORR PREVENTION Protocol 999 MILLIUNIT/MIN Tranexamic Acid 1,000 mg in 100 mls @ 600 mls/hr 01/08/25 21:19 Tranexamic 1,000 Mg/100ml-Nacl IV Q30M PRN EBL >1200mL and within 3hr Ropivacaine 200 mg in 100 mls @ 0 mls/hr 01/09/25 09:49 01/09/25 16:43 Naropin 0.2% EP 5 mls/hr PRN PRN Administration PAIN Protocol Per Protocol Oxytocin/Sodium Chloride 500 mls @ 1 mls/hr 01/09/25 12:00 01/09/25 21:57 Pitocin/Sodium Chloride IV 0 milliunit/min TITR EDILIA 0 mls/hr Titration Protocol 1 MILLIUNIT/MIN Oxytocin/Sodium Chloride 500 mls @ 999 mls/hr 01/10/25 00:18 Pitocin/Sodium Chloride IV PRN PRN POST- HEMORR PREVENTION Protocol 999 MILLIUNIT/MIN Ibuprofen 600 mg 01/11/25 01:00 01/11/25 02:32 Ibuprofen 600 Mg Tablet PO 600 mg Q6HR EDILIA Administration Labetalol HCl 20 - 80 mg 01/08/25 21:19 Labetalol 20 Mg/4 Ml Syringe IVP Q10M PRN SBP> or= 160 OR DBP> or= 110 Protocol Labetalol HCl 20 mg 01/08/25 21:19 Labetalol 20 Mg/4 Ml Syringe IVP .ONCE PRN SBP> or= 160 OR DBP> or= 110 Protocol Labetalol HCl 20 - 40 mg 01/08/25 21:19 Labetalol 20 Mg/4 Ml Syringe IVP Q10M PRN SBP> or= 160 OR DBP> or= 110 Protocol Labetalol HCl 20 - 40 mg 01/10/25 00:18 Labetalol 20 Mg/4 Ml Syringe IVP Q10M PRN SBP> or= 160 OR DBP> or= 110 Protocol Labetalol HCl 20 mg 01/10/25 00:18 Labetalol 20 Mg/4 Ml Syringe IVP .ONCE PRN SBP> or= 160 OR DBP> or= 110 Protocol Labetalol HCl 20 - 80 mg 01/10/25 00:18 Labetalol 20 Mg/4 Ml Syringe IVP Q10M PRN SBP> or= 160 OR DBP> or= 110 Protocol Lidocaine HCl 20 ml 01/08/25 21:19 Lidocaine 1% 20 Ml Mdv ID 01/11/25 21:19 .ONCE PRN PERINEAL REPAIR Magnesium Hydroxide 2,400 mg 01/10/25 00:18 Magnesium Hydroxide 2,400 Mg/30 Ml Udc PO Q8HR PRN Constipation Methylergonovine Maleate 0.2 mg 01/08/25 21:19 Methylergonovine 0.2 Mg/Ml Vial IM .ONCE PRN Hemorrhage Metoclopramide HCl 10 mg 01/09/25 09:49 Metoclopramide 10 Mg/2 Ml Vial IVP Q6HR PRN Nausea / Vomiting Misoprostol 600 mcg 01/08/25 21:19 Misoprostol 200 Mcg Tablet BC .ONCE PRN Hemorrhage Misoprostol 800 mcg 01/08/25 21:19 Misoprostol 200 Mcg Tablet [place] .ONCE PRN Hemorrhage Misoprostol 25 mcg 01/08/25 23:00 01/08/25 22:42 Misoprostol 100 Mcg Tablet VG 25 mcg Q4H EDILIA Administration Nalbuphine HCl 2.5 - 5 mg 01/09/25 09:49 Nalbuphine 10 Mg/Ml Amp IVP Q4H PRN ITCHING Naloxone HCl 0.1 mg 01/09/25 09:49 Naloxone 0.4 Mg/Ml Vial IVP Q2M PRN RR<8 Naloxone HCl 0.4 mg 01/10/25 00:18 Naloxone 0.4 Mg/Ml Vial IVP .ONCE PRN Opioid overdose Nifedipine 10 - 20 mg 01/08/25 21:19 Nifedipine 10 Mg Capsule PO Q20M PRN SBP> or= 160 OR DBP> or= 110 Protocol Nifedipine 30 mg 01/09/25 09:00 Nifedipine Er 30 Mg Tablet PO DAILY [facility] Nifedipine 10 - 20 mg 01/10/25 00:18 Nifedipine 10 Mg Capsule PO Q20M PRN SBP> or= 160 OR DBP> or= 110 Protocol Ondansetron HCl 4 mg 01/09/25 09:49 01/09/25 10:15 Ondansetron 4 Mg/2 Ml Vial IVP 4 mg Q6HR PRN Administration Nausea / Vomiting Oxycodone HCl 5 mg 01/10/25 00:18 01/11/25 06:40 Oxycodone 5 Mg Tablet PO 5 mg Q4HR PRN Administration Severe Pain 6 -10 Oxytocin 10 unit 01/08/25 21:19 Oxytocin 10 Unit/Ml Vial IM .ONCE PRN Step One if no IV access. Simethicone 80 mg 01/10/25 00:18 01/10/25 10:25 Simethicone Chew 80 Mg Tablet PO 80 mg TID PRN Administration Gas Sodium Chloride 10 ml 01/08/25 21:19 Sodium Chloride Flush 0.9% 10 Ml Syringe IVP PRN PRN NEEDED PER PROVIDER ORDERS Sodium Chloride 10 ml 01/08/25 22:00 01/08/25 22:00 Sodium Chloride Flush 0.9% 10 Ml Syringe IVP Not Given Q8H [facility] Sumatriptan Succinate 25 mg 01/08/25 22:00 Sumatriptan 25 Mg Tablet PO DAILY PRN MIGRAINE Terbutaline Sulfate 0.25 mg 01/08/25 21:19 Terbutaline 1 Mg/Ml Vial SUBQ .ONCE PRN Tachystole Objective Vital Signs/Intake & Output Vital Signs: Vital Signs x48h Temp Pulse Resp BP 01/11/25 05:00 36.8 C 88 16 98/47 L 01/11/25 02:30 36.7 C 99 18 109/64 01/11/25 00:02 99 16 109/50 L Intake & Output: Intake & Output 01/08/25 01/09/25 01/10/25 01/11/25 23:59 23:59 23:59 23:59 Intake Total 571 / 571 1740 / 1740 360 / 360 Output Total 875 / 875 2800 / 2800 Balance -304 / -304 -1060 / -1060 360 / 360 Weight (kg) 230 lb Lab Results 01/11/25 07:09 01/08/25 21:45 Other Labs: Lab Results x24hrs 01/10/25 Range/Units 09:18 WBC 14.7 H (4.8-10.8) x10^3/uL RBC 3.06 L (4.20-5.40) 10^6/uL Hgb 8.8 L (12.0-16.0) g/dL Hct 28.0 L (37.0-47.0) % MCV 91.5 (81.0-99.0) fL MCH 28.8 (27.0-31.0) pg MCHC 31.4 L (32.0-36.0) g/dL RDW 14.6 (12.0-15.0) % Plt Count 185 (130-450) 10^3/uL MPV 9.5 (7.9-10.8) fL Assessment/Plan Problem List (1) Delivery by section: Impression: Routine postoperative care. Anticipate discharge tomorrow. (2) Delivery outcome of [place] infant: Qualifiers: outcome: live Qualified Code(s): Z37.0 - Single live
[2025-01-11 07:23] LABS: HCT - HEMATOCRIT 24.6 % (37.0-47.0); HGB - HEMOGLOBIN 7.9 g/dL (12.0-16.0); MEAN CORPUSCULAR HEMOGLOBIN 29.2 pg (27.0-31.0); MEAN CORPUSCULAR HGB CONC 32.1 g/dL (32.0-36.0); MEAN CORPUSCULAR VOLUME 90.8 fL (81.0-99.0); MEAN PLATELET VOLUME 9.2 fL (7.9-10.8); RED BLOOD COUNT 2.71 10^6/uL (4.20-5.40); RED CELL DISTRIBUTION WIDTH 14.8 % (12.0-15.0); WHITE BLOOD COUNT 13.3 x10^3/uL (4.8-10.8)
[2025-01-11] MEDS: FERRIC GLUCONATE 125 MG in SODIUM CHLORIDE 0.9% 100ML 100 ML IV ONE (12:08)
[2025-01-11] MEDS: oxyCODONE 5 MG TABLET PO STA (17:24)
--- NOTE | 2025-01-11 17:24 | PROVIDER PROGRESS NOTE ---
Current Medications Current Medications Current Medications: Current Medications Generic Name Dose Route Start Last Admin Trade Name Freq PRN Reason Stop Dose Admin Acetaminophen 1,000 mg 01/08/25 21:19 Acetaminophen 500 Mg Tablet PO Q8H PRN Mild Pain or Fever>38C(100.4F) Acetaminophen 1,000 mg 01/10/25 06:00 01/11/25 14:47 Acetaminophen 500 Mg Tablet PO 1,000 mg Q8H EDILIA Administration Diphenhydramine HCl 12.5 - 25 mg 01/09/25 09:49 Diphenhydramine Inj 50 Mg/Ml Vial IVP Q6HR PRN ITCHING Docusate Sodium 200 mg 01/10/25 09:00 01/10/25 10:26 Docusate Sodium 100 Mg Capsule PO 200 mg BID EDILIA Administration Ephedrine Sulfate 5 mg 01/09/25 09:49 01/09/25 15:28 Ephedrine 50 Mg/Ml Vial IVP 5 mg Q5M PRN Administration For SBP<100;give until SBP>100 Fentanyl 50 mcg 01/08/25 21:19 Fentanyl 100 Mcg/2 Ml Vial IVP Q1H PRN Severe Pain (score 7-10) Hydralazine HCl 5 - 10 mg 01/08/25 21:19 Hydralazine Inj 20 Mg/Ml Vial IVP Q20M PRN SBP> or= 160 OR DBP> or= 110 Protocol Hydralazine HCl 10 mg 01/10/25 00:18 Hydralazine Inj 20 Mg/Ml Vial IVP .ONCE PRN SBP> or= 160 OR DBP> or= 110 Protocol Hydralazine HCl 5 - 20 mg 01/10/25 00:18 Hydralazine Inj 20 Mg/Ml Vial IVP Q20M PRN SBP> or= 160 OR DBP> or= 110 Protocol Hydrocortisone 1 applic 01/10/25 00:18 Hydrocortisone 1% Cream 28 Gm Tube TOP QID PRN Hemorrhoids Lactated Ringer's 500 mls @ 999 mls/hr 01/08/25 21:19 01/11/25 13:31 Lr IV Infused PRN PRN Infusion Hypotension Oxytocin/Sodium Chloride 500 mls @ 999 mls/hr 01/08/25 21:19 Pitocin/Sodium Chloride IV PRN PRN POST- HEMORR PREVENTION Protocol 999 MILLIUNIT/MIN Tranexamic Acid 1,000 mg in 100 mls @ 600 mls/hr 01/08/25 21:19 Tranexamic 1,000 Mg/100ml-Nacl IV Q30M PRN EBL >1200mL and within 3hr Ropivacaine 200 mg in 100 mls @ 0 mls/hr 01/09/25 09:49 01/11/25 13:39 Naropin 0.2% EP Infused PRN PRN Infusion PAIN Protocol Per Protocol Oxytocin/Sodium Chloride 500 mls @ 1 mls/hr 01/09/25 12:00 01/09/25 21:57 Pitocin/Sodium Chloride IV 0 milliunit/min TITR EDILIA 0 mls/hr Titration Protocol 1 MILLIUNIT/MIN Oxytocin/Sodium Chloride 500 mls @ 999 mls/hr 01/10/25 00:18 Pitocin/Sodium Chloride IV PRN PRN POST- HEMORR PREVENTION Protocol 999 MILLIUNIT/MIN Ibuprofen 600 mg 01/11/25 01:00 01/11/25 16:52 Ibuprofen 600 Mg Tablet PO 600 mg Q6HR EDILIA Administration Labetalol HCl 20 - 80 mg 01/08/25 21:19 Labetalol 20 Mg/4 Ml Syringe IVP Q10M PRN SBP> or= 160 OR DBP> or= 110 Protocol Labetalol HCl 20 mg 01/08/25 21:19 Labetalol 20 Mg/4 Ml Syringe IVP .ONCE PRN SBP> or= 160 OR DBP> or= 110 Protocol Labetalol HCl 20 - 40 mg 01/08/25 21:19 Labetalol 20 Mg/4 Ml Syringe IVP Q10M PRN SBP> or= 160 OR DBP> or= 110 Protocol Labetalol HCl 20 - 40 mg 01/10/25 00:18 Labetalol 20 Mg/4 Ml Syringe IVP Q10M PRN SBP> or= 160 OR DBP> or= 110 Protocol Labetalol HCl 20 mg 01/10/25 00:18 Labetalol 20 Mg/4 Ml Syringe IVP .ONCE PRN SBP> or= 160 OR DBP> or= 110 Protocol Labetalol HCl 20 - 80 mg 01/10/25 00:18 Labetalol 20 Mg/4 Ml Syringe IVP Q10M PRN SBP> or= 160 OR DBP> or= 110 Protocol Lidocaine HCl 20 ml 01/08/25 21:19 Lidocaine 1% 20 Ml Mdv ID 01/11/25 21:19 .ONCE PRN PERINEAL REPAIR Magnesium Hydroxide 2,400 mg 01/10/25 00:18 Magnesium Hydroxide 2,400 Mg/30 Ml Udc PO Q8HR PRN Constipation Methylergonovine Maleate 0.2 mg 01/08/25 21:19 Methylergonovine 0.2 Mg/Ml Vial IM .ONCE PRN Hemorrhage Metoclopramide HCl 10 mg 01/09/25 09:49 Metoclopramide 10 Mg/2 Ml Vial IVP Q6HR PRN Nausea / Vomiting Misoprostol 600 mcg 01/08/25 21:19 Misoprostol 200 Mcg Tablet BC .ONCE PRN Hemorrhage Misoprostol 800 mcg 01/08/25 21:19 Misoprostol 200 Mcg Tablet VA .ONCE PRN Hemorrhage Misoprostol 25 mcg 01/08/25 23:00 01/08/25 22:42 Misoprostol 100 Mcg Tablet VG 25 mcg Q4H EDILIA Administration Nalbuphine HCl 2.5 - 5 mg 01/09/25 09:49 Nalbuphine 10 Mg/Ml Amp IVP Q4H PRN ITCHING Naloxone HCl 0.1 mg 01/09/25 09:49 Naloxone 0.4 Mg/Ml Vial IVP Q2M PRN RR<8 Naloxone HCl 0.4 mg 01/10/25 00:18 Naloxone 0.4 Mg/Ml Vial IVP .ONCE PRN Opioid overdose Nifedipine 10 - 20 mg 01/08/25 21:19 Nifedipine 10 Mg Capsule PO Q20M PRN SBP> or= 160 OR DBP> or= 110 Protocol Nifedipine 30 mg 01/09/25 09:00 Nifedipine Er 30 Mg Tablet PO DAILY [facility] Nifedipine 10 - 20 mg 01/10/25 00:18 Nifedipine 10 Mg Capsule PO Q20M PRN SBP> or= 160 OR DBP> or= 110 Protocol Ondansetron HCl 4 mg 01/09/25 09:49 01/09/25 10:15 Ondansetron 4 Mg/2 Ml Vial IVP 4 mg Q6HR PRN Administration Nausea / Vomiting Oxycodone HCl 5 mg 01/10/25 00:18 01/11/25 14:48 Oxycodone 5 Mg Tablet PO 5 mg Q4HR PRN Administration Severe Pain 6 -10 Oxytocin 10 unit 01/08/25 21:19 Oxytocin 10 Unit/Ml Vial IM .ONCE PRN Step One if no IV access. Simethicone 80 mg 01/10/25 00:18 01/10/25 10:25 Simethicone Chew 80 Mg Tablet PO 80 mg TID PRN Administration Gas Sodium Chloride 10 ml 01/08/25 21:19 Sodium Chloride Flush 0.9% 10 Ml Syringe IVP PRN PRN NEEDED PER PROVIDER ORDERS Sodium Chloride 10 ml 01/08/25 22:00 01/11/25 12:09 Sodium Chloride Flush 0.9% 10 Ml Syringe IVP 10 ml Q8H EDILIA Administration Sumatriptan Succinate 25 mg 01/08/25 22:00 Sumatriptan 25 Mg Tablet PO DAILY PRN MIGRAINE Terbutaline Sulfate 0.25 mg 01/08/25 21:19 Terbutaline 1 Mg/Ml Vial SUBQ .ONCE PRN Tachystole Objective Vital Signs/Intake & Output Vital Signs: Vital Signs x48h Temp Pulse Resp BP Pulse Ox 01/11/25 16:45 36.9 C 110 H 20 119/69 98 01/11/25 13:43 36.5 C 96 115/73 Intake & Output: Intake & Output 01/08/25 01/09/25 01/10/25 01/11/25 23:59 23:59 23:59 23:59 Intake Total 571 / 571 1740 / 1740 1070 / 1070 Output Total 875 / 875 2800 / 2800 Balance -304 / -304 -1060 / -1060 1070 / 1070 Weight (kg) 230 lb Lab Results 01/11/25 07:09 01/08/25 21:45 Other Labs: Lab Results x24hrs 01/11/25 Range/Units 07:09 WBC 13.3 H (4.8-10.8) x10^3/uL RBC 2.71 L (4.20-5.40) 10^6/uL Hgb 7.9 L (12.0-16.0) g/dL Hct 24.6 L (37.0-47.0) % MCV 90.8 (81.0-99.0) fL MCH 29.2 (27.0-31.0) pg MCHC 32.1 (32.0-36.0) g/dL RDW 14.8 (12.0-15.0) % Plt Count 187 (130-450) 10^3/uL MPV 9.2 (7.9-10.8) fL Assessment/Plan Problem List (1) Delivery by section: Impression: Called the patient's room to assess patient. Having much increased pain after showering today. Right mid abdominal pain tenderness to palpation, some incisional pain, but appropriate. Tearful while doing exam. Bladder scan showed 80 mL of urine, has not voided since 5 hours previous. Will get CBC and CMP to assess. Blood pressure 119/69, heart rate 110. Will give 1 additional dose of oxycodone for severe pain. If pain persists, labs seem abnormal, will consider CT scan. (2) Delivery outcome of [place] infant: Qualifiers: outcome: live Qualified Code(s): Z37.0 - Single live
[2025-01-11 17:25] LABS: BASOPHILS % (AUTO) 0.2 %; EOSINOPHILS # (AUTO) 0.1 10^3/uL (0.0-0.7); EOSINOPHILS % (AUTO) 0.6 %; HCT - HEMATOCRIT 26.1 % (37.0-47.0); HGB - HEMOGLOBIN 8.3 g/dL (12.0-16.0); LYMPHOCYTES # (AUTO) 1.2 10^3/uL (1.5-3.5); LYMPHOCYTES % (AUTO) 8.4 %; MEAN CORPUSCULAR HEMOGLOBIN 28.7 pg (27.0-31.0); MEAN CORPUSCULAR HGB CONC 31.8 g/dL (32.0-36.0); MEAN CORPUSCULAR VOLUME 90.3 fL (81.0-99.0); MEAN PLATELET VOLUME 9.1 fL (7.9-10.8); MONOCYTES # (AUTO) 0.9 10^3/uL (0.0-1.0); MONOCYTES % (AUTO) 6.3 %; NEUTROPHILS % (AUTO) 83.5 %; PLT - PLATELET COUNT 212 10^3/uL (130-450); RED BLOOD COUNT 2.89 10^6/uL (4.20-5.40); RED CELL DISTRIBUTION WIDTH 14.6 % (12.0-15.0); WHITE BLOOD COUNT 14.4 x10^3/uL (4.8-10.8)
[2025-01-11 17:44] LABS: ALBUMIN 2.8 g/dL (3.2-5.5); ALBUMIN/GLOBULIN RATIO 1.2 (1.0-2.2); BILIRUBIN,TOTAL 0.2 mg/dL (0.2-1.0); CALCIUM 8.5 mg/dL (8.5-10.3); CREATININE 0.5 mg/dL (0.6-1.3); POTASSIUM 3.7 mmol/L (3.5-4.5); TOTAL PROTEIN 5.1 g/dL (6.4-8.9)
[2025-01-11] MEDS: WITCH HAZEL/GLYCERIN 1 PAD TOP PRN (22:54)
[2025-01-12 01:41] VITALS: O2SAT 98
[2025-01-12 05:08] VITALS: TEMP 98.1
--- NOTE | 2025-01-12 09:04 | Discharge Summary ---
Discharge Summary Admit Date: 01/08/25 Discharge Date: 01/12/25 Discharging Provider: Óscar Lindsey DIAGNOSES Admission Diagnoses: 40 weeks gestation Induction of labor Excessive weight gain Discharge Diagnoses with Status of Each Condition: Same Status post primary low transverse Delivery of live [place] HPI History of Present Illness: Subjective Patient reports she is doing well. Lochia appropriate. Denies heavy bleeding. Ambulating. Pelvic and abdominal pain well-controlled. Tolerating oral intake. Diet: Regular. Voiding without difficulty. Passing flatus. Denies BM. Patient is bonding with baby in room Breast feeding going well. Denies feeling lightheaded, dizzy or excessively fatigued. Objective General: Alert, oriented, no apparent distress. Cardiovascular: Regular rate. Regular rhythm. Lungs: No increased work of breathing. Abdomen: Uterus firm. Below umbilicus. No guarding or rebound. Extremities: No pain on palpation. No cords palpated. Distal pulses intact. Incision: Clean, dry, and intact. HOSPITAL COURSE Hospital Course: Patient was admitted at 40 weeks gestation for induction of labor. She stopped progressing so decision made to proceed with low-transverse section. section was complicated by a hemorrhage, and OP presentation. course was relatively uncomplicated, although she had an episode of significant pain from gas, but resolved with simethicone. Otherwise course was uncomplicated and was discharged on postoperative day 2. Counseled on recovery and depression. ALLERGIES Allergies Allergy/AdvReac Type Severity Reaction Status Date / Time No Known Drug Allergies Allergy Verified 01/10/25 17:29 MEDICATIONS Ambulatory Orders Medication Instructions Recorded Confirmed acetaminophen-caffeine 500 mg-65 1 tab PO Q12H PRN pain 07/14/24 01/09/25 mg tablet (Excedrin Tension Headache) sumatriptan succinate 50 mg tablet See Rx Instructions PO .COMPLEX 09/12/24 01/09/25 #20 tabs vitamin no.167-folic acid 1 tab PO DAILYWM 01/09/25 01/09/25 400 mcg-dha 25 mg chewable tablet (One-A-Day ) acetaminophen 500 mg tablet 1,000 mg (2 x 500 mg) PO Q8H 30 01/12/25 days #180 tabs acetaminophen 500 mg tablet 1,000 mg (2 x 500 mg) PO Q8H PRN 01/12/25 (Acetaminophen Extra Strength) Pain #60 tabs docusate sodium 100 mg capsule 200 mg (2 x 100 mg) PO BID 30 days 01/12/25 #120 caps ibuprofen 600 mg tablet 600 mg PO Q6H PRN Pain #30 tabs 01/12/25 oxycodone 5 mg tablet 5 mg PO Q4H PRN Severe Pain #20 01/12/25 tabs simethicone 80 mg chewable tablet 80 mg PO TID PRN Gas #20 tabs 01/12/25 PHYSICAL EXAM AT DISCHARGE Vital Signs: Vital Signs x48h Temp Pulse Resp BP Pulse Ox 01/12/25 05:00 36.7 C 96 18 98/50 L 98 LABS 01/11/25 17:20 01/11/25 17:20 FOLLOW UP Follow Up: With [facility] 1 week TIME SPENT Time Spent in Discharge (Minutes): 20 Discharge Plan Discharge Patient Disposition: Home, Self Care Prescriptions: New acetaminophen 500 mg Tablet 1,000 mg PO Q8H 30 Days Qty: 180 0RF docusate sodium 100 mg Capsule 200 mg PO BID 30 Days Qty: 120 0RF simethicone 80 mg Tablet,Chewable 80 mg PO TID PRN (Reason: Gas) Qty: 20 0RF acetaminophen [Acetaminophen Extra Strength] 500 mg tablet 1,000 mg PO Q8H PRN (Reason: Pain) Qty: 60 1RF ibuprofen 600 mg tablet 600 mg PO Q6H PRN (Reason: Pain) Qty: 30 0RF oxycodone 5 mg tablet 5 mg PO Q4H PRN (Reason: Severe Pain) Qty: 20 0RF Continued sumatriptan succinate 50 mg tablet See Rx Instructions PO .COMPLEX Qty: 20 0RF Rx Instructions: take 1 tab at onset of headache; if no relief may repeat 1 tab after at least 2 hrs; max = 4 tabs/24 hr PO One-A-Day 400 mcg- 25 mg tablet,chewable 1 tab PO DAILYWM Excedrin Tension Headache 500-65 mg tablet 1 tab PO Q12H PRN (Reason: pain) Discontinued nifedipine 30 mg tablet extended release See Rx Instructions .ROUTE .COMPLEX Qty: 90 0RF Dose Instruction: TAKE 1 TABLET BY MOUTH EVERY DAY Rx Instructions: TAKE 1 TABLET BY MOUTH EVERY DAY triamcinolone acetonide 0.025 % cream See Rx Instructions topical .COMPLEX Qty: 80 0RF Rx Instructions: Apply to affected area once or twice daily for 2-4 weeks. Activity Restrictions: Additional Comments Diet: Regular Print Language: Kyrgyz Patient Instructions: Depression , C Section Dc Follow-up Care: Óscar Lindsey MD [Provider Admit Priv/Credential] -
[2025-01-12 10:50] VITALS: BP 121/68
--- NOTE | 2025-01-12 13:40 | Labor Flowsheet ---
Labor Flowsheet Datetime Report Generated by CPN: 01/12/2025 13:40 Datetime: 01/12/2025 10:43 VITAL SIGNS NBP Sys/Gem/Mean (mmHg): 121 : 68 : 80 Pulse: 105 Datetime: 01/11/2025 23:29 SpO2 (%): 100 Datetime: 01/10/2025 07:00 Stage of : Datetime: 01/10/2025 04:26 Membranes Ruptured Date/Time: 01/09/2025 01:43 Amniotic Fluid Color: Light Meconium Cervical Ripening Agents: Cytotec @ Datetime: 01/10/2025 04:11 Respirations: 16 Temperature (C): 36.8 Temperature Route: Oral Datetime: 01/10/2025 02:45 PAIN Pain Scale: 4 Datetime: 01/10/2025 02:30 Pain Assessment Comments: Datetime: 01/09/2025 22:19 UTERINE ACTIVITY Monitor Mode: Internal Frequency (min): 2.5-4 Quality: Mild Duration (sec): 40-50 Pattern: Normal: <= 5 Contractions in 10 Minutes Resting Tone (Palpate): Relaxed ASSESSMENT A Monitor Mode: External US FHR Baseline Rate : 180 Variability: Minimal - Undetectable to <=5 bpm Decelerations: Late Datetime: 01/09/2025 22:16 Patient Care Comments: IUPC out Datetime: 01/09/2025 22:15 LaborFlag: Labor Datetime: 01/09/2025 22:00 Resting Tone IUP (mmHg): 20 Fitzgerald Units (mmHg): 100 Pitocin Checklist: No More than 2 Variable Decelerations > 60 Seconds in Duration and decreasing >6 0 bpm in 30 minutes; No More than 5 Uterine Contractions in 10 Minutes for any 20 Minute Interval; Ut erus Palpates Soft between Contractions; IUPC Resting Tone less than 25 mmHg FHR Baseline Changes: Tachycardia Datetime: 01/09/2025 21:57 Medication Comments: pitocin off Datetime: 01/09/2025 21:55 VAGINAL EXAM Dilatation (cm): 6.0 Effacement (%): 80 Station: -1 Exam by: Claudia, MD Datetime: 01/09/2025 21:28 Patient Position/Activity: Left Lateral Datetime: 01/09/2025 21:01 Communication Comments: per provider RN to increase pitocin Datetime: 01/09/2025 21:00 Contraction Comments: per provider keep pitocin on Datetime: 01/09/2025 20:04 COMMUNICATION Communication: Provider at Bedside Datetime: 01/09/2025 19:30 MONTEVIDEO UNITS (Computed) Contractions in Ten Minutes: 3 IUPC Average Intensity: 60 IUPC Average Resting Tone: 15 Fitzgerald Units (mmHg): 135 Comments: withm period of moderate variability Datetime: 01/09/2025 19:01 Intensity IUP (mmHg): 55 Category: Category II Datetime: 01/09/2025 16:56 Anesthesia Level Check: T10- Umbilicus Datetime: 01/09/2025 16:50 Pain Type: Cramping Pain Location: Abdomen Pain Coping: Writhing Anesthesia Comments: BALANCE WEIGHER Monk notified of Pt's pain Datetime: 01/09/2025 16:03 MEDICATIONS Pitocin (milliunits): Increased to @ 7 Datetime: 01/09/2025 15:30 Accelerations: 15X15 Datetime: 01/09/2025 15:01 Monitor Interventions for UA: [place] Adjusted Datetime: 01/09/2025 14:35 Pain Presence: None/Denies Datetime: 01/09/2025 10:37 PATIENT CARE IV/Blood Work: IV Bolus Given ml @ 500 I/O Interventions: Aleman Cath Inserted Datetime: 01/09/2025 10:25 Vaginal Bleeding: None Cervix, Consistency: Soft Cervix, Position: Midposition Vaginal Exam Comments: no change from 9am exam Datetime: 01/09/2025 10:16 Antiemetics/Antacids: Zofran (mg) @ 4 Datetime: 01/09/2025 10:10 Magnesium/Antihypertensives: Ephedrine IV (mg) @ 5 Datetime: 01/09/2025 09:39 Epidural Procedure: Loading Dose; Completed Epidural Procedure Other: Pump Started Datetime: 01/09/2025 09:22 PROCEDURE TIME OUT Procedure Verify: Correct Patient Identity; Correct Side and Site are Marked; Accurate Procedure Co nsent Form; Agreement on Procedure to be Done; Correct Patient Position; Relevant Images and Results are Properly Labeled and Displayed; Addressed Need to Administer Antibiotics or Fluids for Irrigation ANESTHESIA Anesthesia Plans: Epidural Epidural Positioning: Sitting Datetime: 01/09/2025 08:30 Pain Relief Measures: Comfort Measures Datetime: 01/09/2025 07:20 Membrane Status: Meconium Datetime: 01/09/2025 03:09 Provider Notified (Name): James, MD Notification Reason: Labor Status; Membrane Status Datetime: 01/09/2025 02:31 Monitor Interventions for FHR: Ultrasound Adjusted Datetime: 01/09/2025 01:43 Membranes Rupture Method: Spontaneous Amniotic Fluid Amount: Moderate Nitrazine: Positive Membrane Comments: moderate mec Datetime: 01/08/2025 22:36 MATERNAL ASSESSMENT Level of Consciousness: Alert Headache: Denies Breath Sounds, Left: Clear and Equal Breath Sounds, Right: Clear and Equal Nausea/Vomiting: Denies
== END 2025-01-12 11:45 | disposition home or self-care (01) | DRG 787 ==
LOC: WFO 21:04 → FBP 21:06
PROVIDERS: ADMIT Obstetrics & Gynecology; ATTEND Obstetrics & Gynecology